=== PATIENT | male | born 1965 | race Caucasian/White ===

== ENCOUNTER → 2017-02-14 | Outpatient (CLI) | payer OTHER ==
--- NOTE | 2017-02-18 07:58 | XR ---
Right hand HISTORY: Trauma and pain 3 views of the right hand No comparisons Bone mineralization and alignment are maintained. No fracture or dislocation. Suspect some mild osteo arthritic change at the metacarpophalangeal joint of the first digit. IMPRESSION: Osteoarthritic change
== END | disposition home or self-care (01) ==
LOC: RADXRYALE 12:07
PROVIDERS: ATTEND Internal Medicine
DX: M19.141 Post-traumatic osteoarthritis, right hand (principal)

== ENCOUNTER → 2017-11-06 | Outpatient (CLI) | payer OTHER | END | disposition home or self-care (01) | LOC: RADECHMAIN 12:15 | PROVIDERS: ATTEND Internal Medicine | DX: I49.8 Other specified cardiac arrhythmias (principal) | CPT/HCPCS: 93270; 93271 ==

== ENCOUNTER → 2018-07-17 | Outpatient (CLI) | payer OTHER | LOC: LABWHC1 08:59 | PROVIDERS: ATTEND Internal Medicine | DX: E11.9 Type 2 diabetes mellitus without complications (principal) | CPT/HCPCS: 36415; 82565; 84520 ==

== ENCOUNTER → 2018-07-20 | Outpatient (CLI) | payer OTHER ==
--- NOTE | 2018-07-20 08:18 | MR ---
EXAMINATION TYPE: MR lumbar spine wo/w con DATE OF EXAM: 07/20/2018 COMPARISON: 04/11/2011 HISTORY: Lumbago with sciatica, left side TECHNIQUE: Multiplanar, multisequence images of the lumbar spine were acquired utilizing 10 mL intravenous Gadav ist gadolinium contrast. FINDINGS: The lumbar vertebral bodies maintain normal vertebral body heights and alignment. Bone chantell ow signal is within normal limits other than a L1 hemangioma. Conus medullaris is unremarkable termin ating at T12-L1. Schmorl's node is seen in the inferior endplate of L2. Multilevel disc desiccation i s seen. Post contrast images demonstrate fibrosis at the left hemilaminectomy site of L4-L5 and L5-S1 . However there is no enhancement of this T1 hypointense and T2 hypointense fibrosis possibly related to the timing of postcontrast sequence acquisition. At the L4-L5 level small amount of epidural fibr osis on T1 precontrast and postcontrast axial nonfat sat image 6 is seen surrounding the posterior th ecal sac, however there is no mass effect or extension into the lateral recesses or neural foramen. L1-L2: Minimal disc desiccation is seen. No spinal canal stenosis, disc herniation, or neural foramin al narrowing. L2-L3: There is a broad-based disc bulge and left foraminal annular tear resulting in minimal bilater al neural foraminal narrowing and no spinal canal stenosis. L3-L4: There is a small broad-based disc bulge, ligamentum flavum buckling and mild facet arthropathy without spinal canal stenosis nor neural foraminal narrowing. L4-L5: There is a left eccentric disc bulge and facet arthropathy resulting in mild left neural niko inal narrowing. No spinal canal stenosis or right neural foraminal narrowing. Mild facet arthropathy is also seen. There is a left hemilaminectomy defect. L5-S1: Postsurgical change of the left hemilaminectomy defect is seen in addition to a small broad-ba sed disc bulge. No spinal canal stenosis or neural foraminal narrowing. No abnormal postcontrast enhancement is seen. IMPRESSION: 1. Multilevel mild disc desiccation of the lumbar spine most significant at L2-L3 as there is a left foraminal annular tear. No focal disc herniation or spinal canal stenosis. 2. Postsurgical change at L4-S1 with minimal posterior epidural fibrosis at L4-L5 without mass effect , spinal canal stenosis nor neural foraminal narrowing. No extension surrounding the nerve roots.
== END ==
LOC: RADMRIMAIN 06:05
PROVIDERS: ATTEND Internal Medicine
DX: M51.16 Intervertebral disc disorders with radiculopathy, lumbar region (principal); Z98.890 Other specified postprocedural states
CPT/HCPCS: 72158; A9585

== ENCOUNTER → 2024-04-30 | Outpatient (CLI) | payer BC, OTHER | END | disposition home or self-care (01) | LOC: LABPRL 08:49 | PROVIDERS: ATTEND Urology | DX: N20.0 Calculus of kidney (principal) | CPT/HCPCS: 82365 ==